=== PATIENT | female | born 1955 | race African-American/Black ===

== ENCOUNTER 2016-08-18 09:35 | Day surgery (SDC) | payer MEDICARE ==
--- NOTE | ~2016-08-18 | EGD ---
EGD REPORT [facility] [address] [address] NAME: LUCY LEWIS : 57 STATUS : REG [facility] [place] PAT#: [id number] AGE: 61 ADM/REG DATE : 08/18/16 MR#: [id number] REPORT SERV DATE: 08/18/16 DICTATED BY: ANUP JACOBO III DATE: 08/18/16 REPORT STATUS : Draft TRANSCRIBED BY: [facility] DATE: 08/18/16 Endoscopy Center Patient Name: Lucy Lewis Date of : 1955 Attending MD: ANUP JACOBO III, MD Procedure Date No Time: 08/18/2016 Procedure: Upper GI endoscopy Indications: Heartburn Referring MD: DAVIN ZAPIEN Medicines: Propofol per Anesthesia Complications: No immediate complications. Procedure: Pre-Anesthesia Assessment: - ASA Grade Assessment: III - A patient with severe systemic disease. After obtaining informed consent, the endoscope was passed under direct vision. Throughout the procedure, the patient's blood pressure, pulse, and oxygen saturations were monitored continuously. The GIF [id number] [id number] was introduced through the mouth, and advanced to the third part of duodenum. The upper GI endoscopy was accomplished with ease. The patient tolerated the procedure well. Findings: A non-obstructing Schatzki ring (acquired) was found at the gastroesophageal junction. A small hiatus hernia was present. Diffuse mildly erythematous mucosa without bleeding was found in the gastric antrum. Biopsies were taken with a cold forceps for histology. The examined duodenum was normal. There were "kissing" small nodules on the mid bilateral VC. Impression: - Non-obstructing Schatzki ring. - Hiatus hernia. - Erythematous mucosa in the antrum. Biopsied. - Normal examined duodenum. Recommendation: - Patient has a contact number available for emergencies. The signs and symptoms of potential delayed complications were discussed with the patient. Return to normal activities tomorrow. Written discharge instructions were provided to the patient. - Discharge patient to home. - Return to previous diet. - Follow an antireflux regimen. EGD REPORT [address] [address] NAME: LUCY LEWIS : 57 STATUS : REG [facility] [place] PAT#: [id number] AGE: 61 ADM/REG DATE : 08/18/16 MR#: [id number] REPORT SERV DATE: 08/18/16 DICTATED BY: ANUP JACOBO III DATE: 08/18/16 REPORT STATUS : Draft TRANSCRIBED BY: [employer] DATE: 08/18/16 - Continue present medications. Procedure Code(s): --- Professional --- 07575, Esophagogastroduodenoscopy, flexible, transoral; with biopsy, single or multiple Diagnosis Code(s): --- Professional --- K22.2, Esophageal obstruction K44.9, Diaphragmatic hernia without obstruction or gangrene K31.9, Disease of stomach and duodenum, unspecified R12, Heartburn CPT copyright 2013 [employer]. All rights reserved. The codes documented in this report are preliminary and upon railroad hand review may be revised to meet current compliance requirements. ANUP JACOBO III, MD 08/18/2016 11:36 AM This report has been signed electronically. Number of Addenda: 0 Note Initiated On: 08/18/2016 11:24 AM Scope Withdrawal Time 0 hours 0 minutes 0 seconds [id number] [place] [address]
--- NOTE | ~2016-08-18 | EGD ---
EGD REPORT [facility] [address] [address] NAME: LUCY LEWIS : [birth year] STATUS : REG [facility] [place] PAT#: [id number] AGE: 61 ADM/REG DATE : 08/18/16 MR#: [id number] REPORT SERV DATE: 08/18/16 DICTATED BY: ANUP JACOBO III DATE: 08/18/16 REPORT STATUS : Draft TRANSCRIBED BY: [facility] DATE: 08/18/16 Endoscopy Center Patient Name: Lucy Lewis Date of : 1955 Attending MD: ANUP JACOBO III, MD Procedure Date No Time: 08/18/2016 Procedure: Colonoscopy Indications: High risk colon cancer surveillance: Personal history of colonic polyps Referring MD: DAVIN ZAPEIN Medicines: Propofol per Anesthesia Complications: No immediate complications. Procedure: Pre-Anesthesia Assessment: - ASA Grade Assessment: III - A patient with severe systemic disease. After I obtained informed consent, the scope was passed under direct vision. Throughout the procedure, the patient's blood pressure, pulse, and oxygen saturations were monitored continuously. The PCF [id number] was introduced through the anus and advanced to the cecum, identified by appendiceal orifice and ileocecal valve. The colonoscopy was performed with ease. The patient tolerated the procedure well. The quality of the bowel preparation was good. Findings: Internal hemorrhoids were found during retroflexion. Skin tag posteriorly Multiple diverticula were found in the sigmoid colon. Impression: - Internal hemorrhoids. - Diverticulosis in the sigmoid colon. Recommendation: - Patient has a contact number available for emergencies. The signs and symptoms of potential delayed complications were discussed with the patient. Return to normal activities tomorrow. Written discharge instructions were provided to the patient. - Discharge patient to home. - Return to previous diet. - Continue present medications. - Repeat colonoscopy in 5 years for surveillance. Procedure Code(s): --- Professional --- 20339, Colonoscopy, flexible, proximal to splenic EGD REPORT [facility] [address] [address] NAME: LUCY LEWIS : [birth year] STATUS : REG [facility]#: [id number] AGE: 61 ADM/REG DATE : 08/18/16 MR#: [id number] REPORT SERV DATE: 08/18/16 DICTATED BY: ANUP JACOBO III DATE: 08/18/16 REPORT STATUS : Draft TRANSCRIBED BY: [employer] DATE: 08/18/16 flexure; diagnostic, with or without collection of specimen(s) by brushing or washing, with or without colon decompression (separate procedure) Diagnosis Code(s): --- Professional --- K64.8, Other hemorrhoids K57.30, Diverticulosis of large intestine without perforation or abscess without bleeding Z86.010, Personal history of colonic polyps CPT copyright 2013 [employer]. All rights reserved. The codes documented in this report are preliminary and upon physician assistant primary care review may be revised to meet current compliance requirements. ANUP JACOBO III, MD 08/18/2016 11:54 AM This report has been signed electronically. Number of Addenda: 0 Note Initiated On: 08/18/2016 11:15 AM Scope Withdrawal Time 0 hours 11 minutes 38 seconds [id number] [facility] [address] [id number]
[~2016-08-18 09:35] MED LIST: ATORVASTATIN PO; BENTYL10 PO; C5 PO; DIOV80 PO; ENDOCET1 TA1 PO; FLONASE NAS; FUROSEMIDE; HYDROCHLOROT12.5 MG PO; KLONO5 PO; KLOR-CON M2020 MEQ PO; LOP100 PO; LORTAB10 PO; MICRO-K10 MEQ PO; NORV10 PO; OXYCON40 PO; OXYCONTIN15 MG PO; PAX20 PO; PLAQ200B PO; PRILOSEC40 MG PO; PROAIR HFA INH; RANITIDINE300 MG PO; ROXICODONE15 MG PO; SPIRO50 PO; SYMBICORT 160/41 INH INH; TOPXL100 PO; TRAZ50 PO; VYTORIN 10/40 T1 TAB PO; ZOCOR40 PO; ZOL50 PO
[2016-08-18 10:31] LABS: INTERNATIONAL NORMAL RATI 1.2 UNITS (-)
== END 2016-08-18 23:59 | disposition home or self-care (01) ==
LOC: DMU 09:35
PROVIDERS: Anesthesiology; Internal Medicine Gastroenterology
PROC: 0DJD8ZZ Inspection of Lower Intestinal Tract, Via Natural or Artificial Opening Endoscopic (ICD-10-PCS; principal; 2016-08-18 11:00)
PROC: 0DB68ZX Excision of Stomach, Via Natural or Artificial Opening Endoscopic, Diagnostic (ICD-10-PCS; 2016-08-18 11:00)
DX: K22.2 Esophageal obstruction (principal); K64.8 Other hemorrhoids; K57.30 Diverticulosis of large intestine without perforation or abscess without bleeding; L91.8 Other hypertrophic disorders of the skin; K44.9 Diaphragmatic hernia without obstruction or gangrene; K21.9 Gastro-esophageal reflux disease without esophagitis; K31.84 Gastroparesis; K29.70 Gastritis, unspecified, without bleeding; I10 Essential (primary) hypertension; J45.909 Unspecified asthma, uncomplicated; E78.00 Pure hypercholesterolemia, unspecified; G89.29 Other chronic pain; G47.33 Obstructive sleep apnea (adult) (pediatric); M79.7 Fibromyalgia; M19.90 Unspecified osteoarthritis, unspecified site; M32.9 Systemic lupus erythematosus, unspecified; Z86.010 Personal history of colon polyps; Z86.73 Personal history of transient ischemic attack (TIA), and cerebral infarction without residual deficits; Z87.891 Personal history of nicotine dependence; Z86.711 Personal history of pulmonary embolism; Z88.2 Allergy status to sulfonamides; Z88.1 Allergy status to other antibiotic agents; Z90.710 Acquired absence of both cervix and uterus; Z79.891 Long term (current) use of opiate analgesic; Z79.01 Long term (current) use of anticoagulants; Z79.51 Long term (current) use of inhaled steroids; Z79.899 Other long term (current) drug therapy; Z98.890 Other specified postprocedural states
CPT/HCPCS: 85610; 88305